=== PATIENT | female | born 1985 | race Caucasian/White ===

== ENCOUNTER 2020-05-01 11:11 | Observation (INO) ==
[2020-05-01] MEDS ORDERED: Ondansetron 4 MG/2 ML VIAL IVP ONE (11:38)
[2020-05-01] MEDS: 0.9 % Sodium Chloride 1,000 ML IVC SCH ×3 (12:09→19:20)
[2020-05-01 12:17] LABS: Basophils % 0.2 %; Hematocrit 44.7 % (35.3-44.9); Hemoglobin 15.4 g/dL (11.5-15.4); Immature Granulocytes % 0.3 % (0-4); Lymphocytes # 1.7 K/mcL (0.6-4.6); Lymphocytes % 13.9 %; Mean Corpuscular HGB Conc 34.5 g/dL (31.6-35.5); Mean Corpuscular Hemoglobin 31.5 pg (28.0-33.3); Mean Corpuscular Volume 91.4 fL (83.0-100.0); Mean Platelet Volume 10.8 fL (9.4-12.4); Monocytes # 0.7 K/mcL (0.0-1.3); Monocytes % 5.5 %; Platelet Count 361 K/mcL (140-400); Red Blood Count 4.89 M/mcL (3.82-4.97); Red Cell Distribution Width 12.1 % (11.5-14.5); Segmented Neutrophils % 80.1 %; White Blood Count 12.5 K/mcL (4.3-11.1)
[2020-05-01 12:26] LABS: INR 1.2; Prothrombin Time 13.6 Seconds (9.4-12.1)
[2020-05-01 12:28] LABS: Activated Partial Thrombo Time 35.7 Seconds (26.0-36.0)
[2020-05-01 12:34] LABS: Bacteria,Urine Few per hpf (None-Few); Bilirubin,Urine Negative (Negative); Blood,Urine Trace (Negative); Clarity,Urine Turbid (Clear); Color,Urine Yellow (Yellow); Glucose,Urine (UA) Normal (Normal); Hyaline Casts,Urine Few per lpf (None Seen); Ketones,Urine 20 mg/dL (Negative); Leukocyte Esterase,Urine Small (Negative); Mucus,Urine Many per lpf (None-Few); Nitrite,Urine Positive (Negative); Protein,Urine 200 mg/dL (Neg-Trace); Specific Gravity,Urine 1.029 (1.010-1.025); Squamous Epithelial Cell,Urine Many per hpf (None-Few); Urobilinogen,Urine Normal (Normal)
[2020-05-01 12:37] LABS: Alanine Aminotransferase 12 Units/L (7-52); Albumin 4.7 g/dL (3.5-5.7); Albumin/Globulin Ratio 1.5 (1.1-2.2); Alkaline Phosphatase 85 Units/L (34-104); Aspartate Amino Transferase 15 Units/L (13-39); BUN/Creatinine Ratio 10 (6-26); Bilirubin,Direct 0.1 mg/dL (0.0-0.2); Bilirubin,Indirect 0.5 mg/dL (0.0-1.0); Bilirubin,Total 0.6 mg/dL (0.3-1.0); Blood Urea Nitrogen 9 mg/dL (6-20); C-Reactive Protein < 5 mg/L (Less than 10); Calcium 10.1 mg/dL (8.6-10.3); Carbon Dioxide 24 mEq/L (23-29); Chloride 103 mEq/L (98-107); Globulin 3.2 g/dL (2.4-3.5); Glucose 115 mg/dL (70-105); Lactate Dehydrogenase 166 Units/L (140-271); Magnesium 1.9 mg/dL (1.6-2.6); Osmolality,Calculated 288 (280-300); Phosphorous 1.9 mg/dL (2.7-4.5); Potassium 3.3 mEq/L (3.5-5.1); Sodium 139 mEq/L (136-145); Total Protein 7.9 g/dL (6.4-8.9); Troponin I < 0.03 ng/mL (< 0.04); eGFR For African Americans > 60 (> 60); eGFR For Non-African Americans > 60 (> 60)
[2020-05-01] MEDS ORDERED: Isovue-370 500 ML BOTTLE IVP ONE (12:42)
[2020-05-01] MEDS ORDERED: 0.9 % Sodium Chloride 1,000 ML IVC ONE (12:44)
[2020-05-01 12:56] LABS: Ferritin 32 ng/mL (10-120)
[2020-05-01] MEDS ORDERED: *HR* LORazepam 2 MG/ML VIAL IVP ONE ×3 (13:22→20:41)
[2020-05-01] MEDS ORDERED: Naloxone 0.4 MG/ML INJ IVP PRN (14:59)
[2020-05-01] MEDS ORDERED: Potassium Phosphate 44 MEQ in 0.9 % Sodium Chloride 250 ML IVPB ONE (15:02)
[2020-05-01] MEDS ORDERED: *HR* Metoprolol 5 MG/5 ML VIAL IVP PRN (15:03)
[2020-05-01] MEDS ORDERED: HydrOXYzine 100 MG/2 ML VIAL IM PRN (15:11)
[2020-05-01 15:38] LABS: Amphetamine Screen,Urine Negative ng/mL (Cutoff=1000); Barbiturate Screen,Urine Negative ng/mL (Cutoff=200); Benzodiazepines Screen,Urine Negative ng/mL (Cutoff=200); Cannabinoid Screen,Urine Negative ng/mL (Cutoff = 50); Cocaine Screen,Urine Positive ng/mL (Cutoff= 300); Opiate Screen,Urine Negative ng/mL (Cutoff=300); Phencyclidine Screen,Urine Negative ng/mL (Cutoff=25)
[2020-05-01] MEDS ORDERED: cefTRIAXone 1,000 MG in 0.9 % Sodium Chloride Mini Bag 100 ML IVPB SCH (21:00)
[2020-05-01] MEDS ORDERED: cloNIDine HCL 0.1 MG TABLET PO ONE (21:29)
[2020-05-01] MEDS ORDERED: tiZANidine 4 MG TABLET PO ONE (22:05)
[2020-05-02] MEDS: 0.9 % Sodium Chloride 1,000 ML IVC SCH (03:32)
[2020-05-02 05:12] LABS: Basophils % 0.2 %; Eosinophils % 0.2 %; Hematocrit 41.8 % (35.3-44.9); Hemoglobin 14.4 g/dL (11.5-15.4); Immature Granulocytes % 0.5 % (0-4); Lymphocytes # 2.3 K/mcL (0.6-4.6); Lymphocytes % 21.8 %; Mean Corpuscular HGB Conc 34.4 g/dL (31.6-35.5); Mean Corpuscular Hemoglobin 32.2 pg (28.0-33.3); Mean Corpuscular Volume 93.5 fL (83.0-100.0); Mean Platelet Volume 10.6 fL (9.4-12.4); Monocytes # 0.8 K/mcL (0.0-1.3); Monocytes % 7.7 %; Neutrophils # 7.3 K/mcL (1.6-8.9); Platelet Count 322 K/mcL (140-400); Red Blood Count 4.47 M/mcL (3.82-4.97); Red Cell Distribution Width 12.3 % (11.5-14.5); Segmented Neutrophils % 69.6 %; White Blood Count 10.5 K/mcL (4.3-11.1)
[2020-05-02 05:24] LABS: BUN/Creatinine Ratio 6 (6-26); Blood Urea Nitrogen 4 mg/dL (6-20); Calcium 9.1 mg/dL (8.6-10.3); Carbon Dioxide 23 mEq/L (23-29); Chloride 108 mEq/L (98-107); Glucose 110 mg/dL (70-105); Magnesium 2.3 mg/dL (1.6-2.6); Osmolality,Calculated 288 (280-300); Phosphorous 2.6 mg/dL (2.7-4.5); Potassium 3.3 mEq/L (3.5-5.1); Sodium 140 mEq/L (136-145); eGFR For African Americans > 60 (> 60); eGFR For Non-African Americans > 60 (> 60)
[2020-05-02] MEDS: *HR* LORazepam 2 MG/ML VIAL IVP PRN ×2 (06:49→10:50)
[2020-05-02] MEDS ORDERED: lisinopriL 10 MG TABLET PO SCH ×2 (11:15)
[2020-05-02 11:30] VITALS: BP 161/92
== END 2020-05-02 11:44 | disposition left against medical advice (07) ==
LOC: EMEROOARM 11:11 → 3BNU 11:11
PROVIDERS: ADMIT Internal Medicine; ATTEND Internal Medicine